=== PATIENT | male | born 1985 | race Caucasian/White ===

== ENCOUNTER → 2022-10-02 13:58 | Outpatient (CLI) | payer OTHER, SELFPAY ==
--- NOTE | ~2022-10-02 | US_ITS ---
US right upper quadrant INDICATION: Elevated liver function tests. PROCEDURE: Realtime right upper abdominal ultrasound. COMPARISON: No prior studies for comparison. FINDINGS: The pancreas is normal without focal mass or pancreatic ductal dilation. Liver echotexture is increased, consistent with fatty infiltration. There is normal directional flow in the portal ve in. There is a small 4 mm gallbladder polyp. Common bile duct measures 4 mm. No sonographic Flores's si gn. Right renal echotexture is normal. IMPRESSION: 1: Gallbladder polyp measuring 4 mm. 2: Hepatic steatosis. Reviewed, dictated and finalized at location A. DOWN
== END ==
PROVIDERS: PCP Family Medicine; Visit Provider Family Medicine
DX: R79.89 Other specified abnormal findings of blood chemistry (principal); K82.4 Cholesterolosis of gallbladder; K76.0 Fatty (change of) liver, not elsewhere classified
CPT/HCPCS: 76705

== ENCOUNTER 2025-05-18 12:42 | Outpatient (CLI) | payer BC, SELFPAY ==
--- NOTE | ~2025-05-18 | XR_ITS ---
XR cervical spine 4-5V 05/18/2025 13:01 Indication: Neck pain with headache Procedure: 5 views cervical spine Comparison: No prior studies for comparison. Findings: There is fusion at C4-5. There is mild degenerative spondylosis at C5- 6 and C6-7. No alteration of alignment with flexion/extension. No prevertebral soft tissue swelling. Lung apices are normal. Odontoid process within normal limits. Impression: 1: Mild cervical spondylosis. Reviewed, dictated and finalized at location O. Impression: 1: Mild cervical spondylosis.
--- OUTSIDE RECORDS SUMMARY | 2025-05-18 12:51 | XMS_ITS | Clinical Summary ---
Author Organization [facility] [address] Address [address] [place] [id number] Care Team Providers Care Police Captain Name Role Phone Rosita Mercado MD Primary Care Provider [phone] Allergies Active Allergy Reactions Criticality Noted Date Comments Sulfasalazine Rash Medium 04/06/2013 Medications cholecalcifero l (VITAMIN D-3) 2000 unit tablet Take 2 tablets (4,000 Units total) by mouth daily 09/01/[address] (PROTONIX) 40 mg EC tablet Take 1 tablet (40 mg total) by mouth daily 90 tablet 3 03/07/20 24 Active amLODIPine (NORVASC) 10 mg tablet Take 1 tablet (10 mg total) by mouth daily 90 tablet 3 05/09/20 25 026 Active rosuvastatin (CRESTOR) 20 mg tablet Take 1 tablet (20 mg total) by mouth daily 90 tablet 3 05/09/20 25 Active tiZANidine (ZANAFLEX) 4 mg tablet Take 1 tablet (4 mg total) by mouth nightly as needed for muscle spasms 30 tablet 1 05/09/20 25 Active amLODIPine (NORVASC) 5 mg tablet Take 1 tablet (5 mg total) by mouth daily 90 tablet 3 03/07/20 24 025 Discontinued rosuvastatin (CRESTOR) 20 mg tablet Take 1 tablet (20 mg total) by mouth daily 90 tablet 3 03/07/20 24 025 Discontinued(Re order) cyclobenzaprin e (FLEXERIL) 10 mg tablet TAKE 1 TABLET(10 MG) BY MOUTH EVERY NIGHT NEEDED FOR MUSCLE SPASMS 90 tablet 1 06/27/20 24 025 Discontinued Active Problems Problem Noted Date Diagnosed Date Sore throat 06/15/2023 Assessment & Plan (06/15/2023 6:32 PM CDT): Rapid strep negative. Could be referred pain from otitis or false negative. Will treat. Gallbladder polyp 04/03/2023 Assessment & Plan (04/03/2023 1:00 PM CDT): 4mm polyp noted on US 09/2022, will follow up 09/2023 Hemorrhoids 01/07/2023 Assessment & Plan (04/03/2023 1:01 PM CDT): Uses anusol suppository with some relief. Counseled on high fiber diet and adding metamucil. Continue anusol as needed. Assessment & Plan (01/07/2023 2:38 PM CDT): Treat with Anusol suppositories and also recommended Imodium for diarrhea. Patient will follow-up with GI. Evaluate for anemia with CBC. Physical exam, routine 11/18/2022 Assessment & Plan (03/07/2024 9:16 AM CDT): Age-appropriate preventive care ordered/completed. Will follow-up with results of the labs and repeat exam in 1 year. Assessment & Plan (11/18/2022 4:06 PM [facility]): Age-appropriate preventive care ordered/completed. Will follow-up with results of the labs and repeat exam in 1 year. Colon and prostate cancer screening at 45 and 50 respectively unless indicated sooner. Anxiety 11/18/2022 Assessment & Plan (11/18/2022 4:06 PM [facility]): Stable on current medications for now. If symptoms worsen consider long-term medication. Bilateral acute serous otitis media 11/18/2022 Assessment & Plan (06/15/2023 6:31 PM CDT): Treat with augmentin 875-125 mg bid for 10 days. May continue OTC remedies as needed. Follow-up next week if symptoms persist. Assessment & Plan (11/18/2022 4:06 PM [facility]): Treat with Augmentin 875/1251 tablet twice daily for 10 days. Follow-up next week if there is no relief. Elevated LFTs 10/03/2022 Assessment & Plan (04/03/2023 12:59 PM CDT): Noted to have elevated liver enzymes with AST 67, ALT 118 from 08/2022. 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 Labs 01/07/2023 showed normal CMP, CBC, TSH, A1c 6.4, triglyceride 267 Chronic liver disease workup showed normal alpha-1 antitrypsin, ceruloplasmin, elevated ferritin 518, normal transferrin saturation, negative hepatitis panel, negative SHANTA, anti-smooth muscle US from 09/2022 showed hepatic steatosis and 4mm gallbladder polyp Since last visit, down about 8 lbs, recently started seeing nutrition, cutting down on carbs and sugar. Plan Will check fibro score Follow up in 6 months, will repeat US and CMP that time Continue to work on weight loss Assessment & Plan (01/07/2023 2:37 PM CDT): Likely due to hepatic steatosis. Evaluate levels today and follow-up depending on results. Assessment & Plan (10/03/2022 11:28 AM [facility]): New problem. Noted to have elevated liver enzymes with AST 67, ALT 118 from 08/2022. 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 Other differential include drug-induced liver injury, chronic hepatitis, and less likely other chronic liver disease. We will repeat CMP and check hepatitis C today. We will defer other chronic liver disease workup until repeat labs. We will request ultrasound records from outside facility. Patient was counseled on weight loss Pre-diabetes 10/03/2022 Assessment & Plan (03/07/2024 9:16 AM CDT): Elevated blood glucose increases the likelihood of progression to diabetes. Patient will be provided a diet low in simple sugars if needed. Will evaluate labs and follow-up depending on results. Assessment & Plan (01/07/2023 2:37 PM CDT): Elevated blood glucose increases the likelihood of progression to diabetes. Patient will be provided a diet low in simple sugars if needed. Will evaluate labs and follow-up depending on results. Hyperlipidemia 10/03/2022 Assessment & Plan (03/07/2024 9:14 AM CDT): Continue current medication for now and adjust if needed depending on results of lipid panel. Patient has been provided a low-cholesterol diet. Assessment & Plan (01/07/2023 2:37 PM CDT): Continue current medication for now and adjust if needed depending on results of lipid panel. Patient has been counseled regarding a low-cholesterol diet. Assessment & Plan (11/18/2022 4:05 PM [facility]): Continue current medication for now and adjust if needed depending on results of lipid panel next visit. Patient has been counseled regarding a low-cholesterol diet. Hypertension 10/03/2022 Assessment & Plan (03/07/2024 9:15 AM CDT): Not at goal, but we will resume medications. Pt will monitor at home and follow- up for persistent elevations. Otherwise follow-up in 3 months. Assessment & Plan (01/07/2023 2:37 PM CDT): At goal of less than 140/90. Continue current medications to minimize complications of uncontrolled blood pressure. Risks include cardiovascular events (such as heart failure, heart attack and stroke) and kidney failure which can lead to dialysis. Evaluate electrolytes and renal function. Return in 3-6 months depending on results. Assessment & Plan (11/18/2022 4:05 PM [facility]): Not at goal of less than 140/90. Start hydrochlorothiazide 25 mg daily. Patient will start to monitor blood pressures at home and notify me of persistent elevations. Return in 6 weeks. Elevated ALT measurement 06/11/2022 Tension headache 06/11/2022 Vitamin D insufficiency 06/11/2022 Assessment & Plan (03/07/2024 9:16 AM CDT): Adjust supplement/medication depending on lab results. Primary insomnia 04/18/2020 Gastroesophageal reflux disease without esophagi tis 05/25/2019 Resolved Problems Problem Noted Date Diagnosed Date Resolved Date Class 1 obesity due to exces s calories with serious comorbidity and body mass index (BMI) of 32.0 to 32.9 in adult 10/03/2022 03/07/2024 Assessment & Plan (03/07/2024 9:15 AM CDT): Pt is at risk for obesity-related illnesses including diabetes, HTN and hyperlipidemia. Weight loss is encouraged. Evaluate for diabetes and thyroid dysfunction. Pt would like to start weight loss medications. Assessment & Plan (11/18/2022 4:05 PM [facility] [facility]): Pt is at risk for obesity-related illnesses including diabetes, HTN and hyperlipidemia. Weight loss is encouraged. Evaluate for diabetes and thyroid dysfunction. Assessment & Plan (10/03/2022 11:27 AM [facility] [facility]): Patient with recent weight gain of 20 lb over the last 2-3 years. Patient was counseled on weight loss Encounters Date Type Department Care Team Description 05/18/2025 Telephone [facility] [address] [place] [phone] Rosita Mercado MD Medical Question/Miscellaneo us 05/11/2025 Results Follow-Up [facility] [address] [place] [address] [address] [place] [phone] Rosita Mercado MD Hemoglobin A1c, Lipid panel, Comprehensive metabolic panel, Additional followed-up results: 4 05/09/2025 3:15 PM CDT - 05/09/2025 11:59 PM CDT Hospital Encounter [facility] [address] [place] [address] Discharge Disposition: Discharge to home or self care 05/09/2025 2:15 PM CDT Office Visit [facility] [address] [phone] Rosita Mercado MD Physical exam, routine (Primary Dx); Primary hypertension; Mixed hyperlipidemia; Pre-diabetes; Class 1 obesity due to excess calories with serious comorbidity and body mass index (BMI) of 33.0 to 33.9 in adult; Neck pain from Last 3 Months Immunizations Immunization Administration Dates Next Due DT 03/20/1990,07/18/1987,1985 DTaP 1985,1985 Influenza, Quadrivalent, Zhane l Culture-based MDCK, Preservative Free, Antibiotic Free, Intramuscular 07/16/2022 Influenza, Quadrivalent, Spl it, Intramuscular 07/06/2019,07/27/2018 Influenza, Quadrivalent, Spl it, Preservative Free, Intramuscular 09/23/2021,09/07/2017 Influenza, Trivalent, IM (MDV) 07/16/2022,2019 MMR 03/20/1990,12/25/1986 OPV 03/20/1990, 7,1985,07/08,1985 Td, adsorbed 01/15/1999 Tdap 11/02/2017 Tetanus toxoid, adsorbed 03/20/1990,07/18/1987,1 Surgical History Surgery Date Site/Laterality Comments VASECTOMY Medical History Medical History Date Comments GERD (gastroesophageal reflux disease) 03/2020 Anxiety 05/2018 Depression 05/2018 Migraines 04/2022 Hypertension 04/2022 Prediabetes Family History Medical History Relation Name Comments No Known Problems Father No Known Problems Mother Testicular cancer Mother's Brother No Known Problems Sister Relation Name Status Comments Father Alive Mother Alive Mother's Brother Sister Alive Social History Tobacco Use Types Packs/Day Years Used Date Smoking Tobacco: Former Cigarettes 0.1 10 0 05/12/2002 - 01/11/2012 Pipe Cigars Smokeless Tobacco: Never Comments:very infrequent. It was a pack or two a month during college and after college it was only weekends Alcohol Use Standard Drinks/Week Comments Yes 0 (1 standard drink = 0.6 oz pur e alcohol) PHQ-2 Answer Date Recorded PHQ-2 Total Score (If total score is 3 or more points, staff should administer the PHQ-9) 1 05/09/2025 AUDIT-C Answer Date Recorded Q1: How often do you have a drink containing alc ohol? Monthly or less 05/09/2025 Q2: How many drinks containi ng alcohol do you have on a typical day when you are drinking? 1 or 2 05/09/2025 Q3: How often do you have si x or more drinks on one occasion? Never 05/09/2025 Sex and Gender Information Value Date Recorded Sex Assigned at Not on file Legal Sex Male 7:44 PM CDT Gender Identity Not on file Sexual Orientation Not on file Obstetrics History Last Filed Vital Signs Vital Sign Reading Time Taken Comments Blood Pressure 168/108 05/09/2025 2:46 PM CDT Pulse 97 05/09/2025 2:22 PM CDT Temperature 36.8 C (98.3 F) 05/09/2025 2:22 PM CDT Respiratory Rate 18 10/03/2022 10:08 AM [facility] Oxygen Saturation 98% 05/09/2025 2:22 PM CDT Inhaled Oxygen Concentration - - Weight 109.3 kg (241 lb) 05/09/2025 2:22 PM CDT Height 180.3 cm (5' 11) 05/09/2025 2:22 PM CDT Body Mass Index 33.61 05/09/2025 2:22 PM CDT Plan of Treatment Health Maintenance Due Date Last Done Comments HPV Vaccines (1 - 3-dose SCDM series) 02/28/2012 Influenza Vaccine (#1) 2025 , 07/16/2022, 09/23/2021, Additional history exists Covid-19 Vaccine ( season) 2026 07/16/2022, 09/23/2021, 01/17/2021, Additional history exists Postponed from 05/29/2024 (Patient declined, but will receive in the future) Depression Screening 05/09/2026 05/09/2025, 03/07/2024, 11/18/2022 Regular Well Visit/Exam 18-64 05/09/2026 05/09/2025, 03/07/2024 DTaP/Tdap/Td Vaccine (7 - Td or Tdap) 11/02/2027 11/02/2017, 01/15/1999, 03/20/1990, Additional history exists Hepatitis C Screening Completed 10/03/2022 Hepatitis B Screening Completed 10/08/2022 Pneumococcal vaccine <65 Aged Out No longer eligible based on patient's age to complete this topic Varicella Vaccines Discontinued Procedures Procedure Name Priority Date/Time Associated Diagnosis Comments EGFR Routine 05/09/2025 2:58 PM CDT Physical exam, routine DIFFERENTIAL AUTO Routine 05/09/2025 2:5 8 PM CDT Physical exam, routine THYROID FUNCTION CASCADE Routine 05/09/2025 2:58 PM CDT Physical exam, routine CBC WITH AUTO DIFFERENTIAL Routine 05/09/2025 2:58 PM CDT Physical exam, routine COMPREHENSIVE METABOLIC PANEL Routine 05/09/2025 2:58 PM CDT Physical exam, routine LIPID PANEL Routine 05/09/2025 2:58 PM CDT Physical exam, routine HEMOGLOBIN A1C Routine 05/09/2025 2:58 PM CDT Physical exam, routine HEPATITIS C ANTIBODY Routine 10/03/2022 10:37 AM [facility] Elevated LFTs from Last 3 Months or Most Recently Relevant to Health Maintenance Results * eGFR (05/09/2025 2:58 PM CDT) eGFR >90 >=60 mL/min/1. 73 m2 Comment: Interpretive Data Reference Interval Normal >/= 90 mL/min/1.73m2 Mildly decreased* 60 - 89 mL/min/1.73m2 Mildly to moderately decreased 45 - 59 mL/min/1.73m2 Moderately to severely decreased 30 - 44 mL/min/1.73m2 Severely decreased 15 - 29 mL/min/1.73m2 Kidney Failure < 15 mL/min/1.73m2 *Relative to young adult level Estimated glomerular filtration rate is determined by the 2020 CKD-EPI equation recommended by the National Kidney Foundation (A Unifying Approach to GFR Estimation: Recommendations of the NKF-ASK Task Force on Reassessing the Inclusion of Race in Diagnosing Kidney Disease, JASN 202). The CKD-EPI equation should not be used for patients with unstable renal function and has not been validated in children and those over 70. Current interpretive data was last reviewed 2021. Blood 05/09/2025 2:58 PM CDT 05/09/2025 8:25 PM CDT us Rosita Mercado MD LAB BLOOD ORDERABLES Noemy rubin Result [facility] [address] Department [place] [address] * Differential, auto (05/09/2025 2:58 PM CDT) Neutrophil abs 2.98 1.50 - 6.50 K/cumm Imm gran abs 0.01 0.00 - 0.10 K/cumm [facility] Lymphocyte abs 2.84 0.80 - 3.30 K/cumm [facility] Monocyte abs 0.39 0.20 - 0.80 K/cumm [facility] Eosinophil abs 0.21 0.00 - 0.50 K/cumm [facility] Basophil abs 0.04 0.00 - 0.10 K/cumm [facility] Neutrophil pct 46.1 % [facility] Comment: Interpretive Data Percent cell count reference ranges are not reported, since discordance with absolute values may lead to misinterpretation of CBC data. Current Interpretive Data was last revised on 2018. Imm gran pct 0.2 % [facility] Comment: Interpretive Data Percent cell count reference ranges are not reported, since discordance with absolute values may lead to misinterpretation of CBC data. Current Interpretive Data was last revised on 2018. Lymphocyte pct 43.9 % [facility] Comment: Interpretive Data Percent cell count reference ranges are not reported, since discordance with absolute values may lead to misinterpretation of CBC data. Current Interpretive Data was last revised on 2018. Monocyte pct 6.0 % [facility] Comment: Interpretive Data Percent cell count reference ranges are not reported, since discordance with absolute values may lead to misinterpretation of CBC data. Current Interpretive Data was last revised on 2018. Eosinophil pct 3.2 % [facility] Comment: Interpretive Data Percent cell count reference ranges are not reported, since discordance with absolute values may lead to misinterpretation of CBC data. Current Interpretive Data was last revised on 2018. Basophil pct 0.6 % [facility] Comment: Interpretive Data Percent cell count reference ranges are not reported, since discordance with absolute values may lead to misinterpretation of CBC data. Current Interpretive Data was last revised on 2018. Blood 05/09/2025 2:58 PM CDT 05/09/2025 6:10 PM CDT Rosita Mercado MD LAB BLOOD ORDERABLES Noemy l Result Performing Organization Address City/[facility]/ZIP Co de Phone Number [facility] [address] Department [place] [address] * Thyroid Function [place] (05/09/2025 2:58 PM CDT) Pathologist [facility] TSH 1.68 0.30 - 4.20 mcIUnit/mL Blood 05/09/2025 2:58 PM CDT 05/09/2025 8:25 PM CDT Rosita Mercado MD LAB BLOOD ORDERABLES Noemy l Result [facility] [address] [place] [address] * CBC with auto differential (05/09/2025 2:58 PM CDT) Pathologist [facility] WBC 6.47 3.80 - 9.90 K/cumm Hgb 16.4 13.0 - 17.5 g/dL [facility] Hct 49.0 38.9 - 50.3 % [facility] Plt 272 150 - 400 K/cumm [facility] MPV 10.2 9.1 - 12.3 fL [facility] RBC 5.65 4.30 - 5.80 M/cumm [facility] MCV 86.7 81.3 - 96.4 fL [facility] MCH 29.0 27.1 - 33.3 pg [facility] MCHC 33.5 32.3 - 35.7 g/dL [facility] RDW CV 12.0 11.1 - 14.9 % [facility] RDW SD 38.5 35.7 - 48.1 fL [facility] NRBC abs 0.00 0.00 - 0.01 K/cumm [facility] Blood 05/09/2025 2:58 PM CDT 05/09/2025 6:10 PM CDT Rosita Mercado MD LAB BLOOD ORDERABLES Noemy l Result Performing Organization Address [facility] Co de Phone Number [facility] [address] [employer] [place], [place] [id number] * (ABNORMAL) Hemoglobin A1c (05/09/2025 2:58 PM CDT) [facility] Hgb A1C 6.2(H) 4.0 - 5.6 % Estimated Average Glucose 131 mg/dL [facility] Comment: The ADA recommends reporting an estimated Average Glucose (eAG) with all Hemoglobin A1c results using the equation derived from a study of 507 normal and diabetic adults. Minority populations were underrepresented and children were not included. (Diabetes Care 31:5839-2107, 2008). The eAG is not equivalent to a fasting glucose. Blood 05/09/2025 2:58 PM CDT 05/09/2025 6:10 PM CDT Rosita Mercado MD LAB BLOOD ORDERABLES Noemy l Result Performing Organization Address City/[facility]/ZIP Co de Phone Number [facility] [address] [facility] [employer] [place], [place] [id number] * (ABNORMAL) Lipid panel (05/09/2025 2:58 PM CDT) Cholesterol 200(H) 30 - 199 mg/dL Comment: Interpretive Data Ages < or = 19 years Acceptable: <170 mg/dL Borderline high: 170-199 mg/dL High: >or= 200 mg/dL Ages > or = 20 years Desirable: <200 mg/dL Borderline high: 200-239 mg/dL High: >or= 240 mg/dL Literature References: 1. Expert Panel on Integrated Guidelines for Cardiovascular Health and Risk Reduction in Children and Adolescents. Pediatrics 2011;128:S213 2. NCEP Expert Panel. Circulation 2004;110:227 Current Interpretive Data was last revised on 2018. Triglycerides 255(H) <=149 mg/dL [facility] Comment: Interpretive Data Ages < or = 9 years Acceptable: <75 mg/dL Borderline high: 75-99 mg/dL High: >or= 100 mg/dL Ages 10 to 20 years Acceptable: <90 mg/dL Borderline high: 90-129 mg/dL High: >or= 130 mg/dL Ages > or = 20 years Desirable: <150 mg/dL Borderline high: 150-199 mg/dL High: 200-499 mg/dL Very high: >or= 499 mg/dL Literature References: 1. Expert Panel on Integrated Guidelines for Cardiovascular Health and Risk Reduction in Children and Adolescents. Pediatrics 2011;128:S213 2. NCEP Expert Panel. Circulation 2004;110:227 Current Interpretive Data was last revised on 2018. HDL 41 >=40 mg/dL [facility] Comment: Interpretive Data Ages < or = 19 years Acceptable: >45 mg/dL Borderline low: 40-45 mg/dL Low: <40 mg/dL Ages > or = 20 years Desirable: >or= 60 mg/dL Low: <40 mg/dL Literature References: 1. Expert Panel on Integrated Guidelines for Cardiovascular Health and Risk Reduction in Children and Adolescents. Pediatrics 2011;128:S213 2. NCEP Expert Panel. Circulation 2004;110:227 Current Interpretive Data was last revised on 2018. LDL, calculated 115 <=129 mg/dL [facility] Comment: Interpretive Data Ages < or = 19 years Acceptable: <110 mg/dL Borderline high: 110-129 mg/dL High: >or= 130 mg/dL Ages > or = 20 years Optimal: <100 mg/dL Near optimal: 100-129 mg/dL Borderline high: 130-159 mg/dL High: >160 mg/dL Calculated using the Waldemar LDL-C estimating equation. This equation was implemented on 2024. Prior to this date LDL-C was estimated using the Friedewald equation. Literature References: 1. Expert Panel on Integrated Guidelines for Cardiovascular Health and Risk Reduction in Children and Adolescents. Pediatrics 2011;128:S213 2. NCEP Expert Panel. Circulation 2004;110:227 3. Waldemar Ohara et al. OANH Cardiol. 2019January 26;5(5):540-548. doi: 10.1001/jamacardio.2020.0013 Current Interpretive Data was last revised on 2024. Non-HDL Cholesterol 159 mg/dL [facility] Comment: Interpretive Data Ages < or = 19 years Acceptable: <120 mg/dL Borderline high: 120-144 mg/dL High: >145 mg/dL Ages > or = 20 years When triglycerides are >200 mg/dL, Non-HDL cholesterol is a secondary target of therapy with treatment goals that are 30 mg/dL greater than the LDL cholesterol target. Literature References: 1. Expert Panel on Integrated Guidelines for Cardiovascular Health and Risk Reduction in Children and Adolescents. Pediatrics 2011;128:S213 2. NCEP Expert Panel. Circulation 2004;110:227 Current Interpretive Data was last revised on 2018. Chol/HDL ratio 5 [facility] Blood 05/09/2025 2:58 PM CDT 05/09/2025 8:25 PM CDT us Rosita Mercado MD LAB BLOOD ORDERABLES Noemy rubin Result [facility] [address] Department [place] [address] * (ABNORMAL) Comprehensive metabolic panel (05/09/2025 2:58 PM CDT) Sodium 139 135 - 145 mmol/L Potassium, pl 4.2 3.3 - 4.9 mmol/L [facility] Chloride 102 97 - 110 mmol/L [facility] CO2 24 22 - 32 mmol/L [facility] Anion gap 13 2 - 15 mmol/L [facility] BUN 13 6 - 25 mg/dL [facility] Creatinine 0.88 0.80 - 1.30 mg/dL [facility] Glucose 168 70 - 199 mg/dL [facility] Comment: Interpretive Data Fasting glucose >/= 126 mg/dl is diagnostic for diabetes. Fasting is defined as no caloric intake for at least 8 hours. Fasting glucose between 100 mg/dl to 125 mg/dl is diagnostic of prediabetes. In a patient with classic symptoms of hyperglycemia or hyperglycemic crisis, a random glucose >/= 200 mg/dl is diagnostic for diabetes. In the absence of unequivocal hyperglycemia, results should be confirmed by repeat testing. The classification and Diagnosis of Diabetes Diabetes Care 2021; 46: S19-S40. Current interpretive data was last revised 2022. Calcium 9.8 8.5 - 10.3 mg/dL [facility] Bilirubin, total 0.5 0.1 - 1.2 mg/dL [facility] Protein, pl 7.5 6.5 - 8.5 g/dL [facility] Albumin 4.5 3.5 - 5.0 g/dL [facility] Alk phos 83 40 - 130 Units/L [facility] ALT 58(H) 7 - 55 Units/L [facility] AST 31 10 - 50 Units/L [facility] Blood 05/09/2025 2:58 PM CDT 05/09/2025 8:25 PM CDT Narrative [facility] - 05/09/2025 8:58 PM CDT Has the patient fasted?->Yes us Rosita Mercado MD LAB BLOOD ORDERABLES Noemy rubin Result [facility] [address] Department [place] [address] * Hepatitis C antibody (10/03/2022 10:37 AM [facility] [facility]) Hep C Ab Nonreactive Nonreactive [facility] ([place]) Comment: Interpretive Data Nonreactive: Antibodies to HCV not detected. Does NOT exclude the possibility of recent exposure to HCV. Equivocal: Equivocal for HCV antibodies. Supplemental molecular testing will be automatically performed to determine infection status in accordance with current CDC screening recommendations. Reactive: Positive for HCV antibodies. This may represent current or past HCV infection. Supplemental molecular testing will be automatically performed to determine current infection status in accordance with current CDC screening recommendations. Interpretive data was last revised on 2019. Testing performed by: [facility], [address] [place] [address]., [id number] Blood 10/03/2022 10:3 7 AM SUPERVISOR DENTURE DEPARTMENT 10/03/2022 4:51 PM SUPERVISOR DENTURE DEPARTMENT Elise Arellano MD LAB MICROBIOLOGY - GENERAL ORDER DOUGLAS Final Result CLAUDIA [facility] (TRUMANN) [facility] Department [place] [address] from Last 3 Months or Most Recently Relevant to Health Maintenance Insurance [facility] [employer] [facility] Care Teams Police Captain Relationship Specialty Start Date End Date Rosita Mercado MD [address] [facility] [address] [place] [address] PCP - General Family Medicine 11/18/22
--- OUTSIDE RECORDS SUMMARY | 2025-05-18 12:51 | XMS_ITS | Encounter Summary ---
Author Organization [facility] Healthcare Address [address] [place] [address] Care Team Providers Care Latex Caster Name Role Phone Rosita Mercado MD Primary Care Provider [phone] Encounter Details Date Type Department Care Team (Late st Contact Info) Description 05/11/2025 Results [facility]-Up [facility] [address] [place] [address] [address] [place] [address] Rosita Mercado MD [address] [place] [address] [address] [place] [address] Hemoglobin A1c, Lipid panel, Comprehensive metabolic panel, Additional followed-up results: 4 Social History Tobacco Use Types Packs/Day Years [...] on file Sexual Orientation Not on file documented as of this encounter Plan of Treatment Not on file documented as of this encounter Visit Diagnoses Not on filedocumented in this encounter Care Teams Latex Caster Relationship Specialty Start Date End Date Rosita Mercado MD [address] [facility] [address] [place] [address] PCP - General Family Medicine 11/18/22 documented as of this encounter
--- OUTSIDE RECORDS SUMMARY | 2025-05-18 12:51 | XMS_ITS | Encounter Summary ---
Author Organization [facility] Healthcare Address [address] [place] [address] Care Team Providers Care Floor Cleaner Name Role Phone Rosita Mercado MD Primary Care Provider [phone] Reason for Visit * Reason Onset Date Comments Medical Question/Miscellaneous 05/18/2025 Encounter Details Date Type Department Care Team (Late Contact Info) Description 05/18/2025 Telephone [facility] [address] [place] [address] [address] [place] [address] Rosita Mercado MD [address] [place] [address] [address] [place] [address] Medical Question/Miscellaneous Social History Tobacco Use Types Packs/Day Years [...] on file documented as of this encounter Miscellaneous Notes * Telephone Encounter - Pravin Buck - 05/18/2025 12:45 PM CDT Faxed and sent to [facility] * Telephone Encounter - Hannah Barone - 05/18/2025 12:26 PM CDT Call Back Caller???s Concern: Calling for XR order status. Currently at facility. [facility] reached out to backlinewas advised they will refax and place order in patients [facility] Does message need to be routed? No * Telephone Encounter - Rachel Bryan - 05/18/2025 11:59 AM CDT Medical Question/Miscellaneous Caller???s Concern: Patient would like for the office to send the order for XR spine cervical Complete 4 OR 5 Vw sent to his [facility] imaging center [phone] . Patient is currently at the office . Does message need to be routed? Yes-Action Needed documented in this encounter Plan of Treatment Not on file documented as of this encounter Visit Diagnoses Not on filedocumented in this encounter Care Teams Floor Cleaner Relationship Specialty Start Date End Date Rosita Mercado MD [address] [facility] [address] [place] [address] PCP - General Family Medicine 11/18/22 documented as of this encounter
--- OUTSIDE RECORDS SUMMARY | 2025-05-18 12:51 | XMS_ITS | Clinical Summary ---
Author Organization [facility] [employer] [place] Address [address] [place] [address] Care Team Providers Care Costume Maker Name Role Phone Unavailable Primary Care Provider Unavailabl e Allergies Active Allergy Reactions Criticality Noted Date Comments Sulfasalazine Rash Low 04/06/2013 Medications cholecalciferol, Vitamin D3, 50 mcg (2,000 unit) TabletIndications:V itamin D insufficiency Take 2 Tablets (4,000 Units) by mouth daily. 180 Tablet 2 Active rosuvastatin (CRESTOR) 20 mg tabletIndications:M ixed hyperlipidemia Take 1 Tablet (20 mg) by mouth daily. 90 Tablet 2 Active amitriptyline (ELAVIL) 25 mg tablet Take 0.5 Tablets (12.5 mg) by mouth daily at bedtime. 30 Tablet 2 Active pantoprazole (PROTONIX) 40 mg Tablet, Delayed Release (E.C.) TAKE 1 TABLET(40 MG) BY MOUTH DAILY 90 Tablet 3 Active Active Problems Problem Noted Date Diagnosed Date Elevated LFTs 09/24/2022 Prediabetes 06/11/2022 Elevated ALT measurement 06/11/2022 Vitamin D insufficiency 06/11/2022 Mixed hyperlipidemia 06/11/2022 Tension headache 06/11/2022 Gastroesophageal reflux disease without esophagi tis 05/25/2019 Immunizations Immunization Administration Dates Next Due (ADACEL/BOOSTRIX)(10 YR UP) TDAP VACCINE, 0.5ML, IM 11/02/2017 INFLUENZA VACCINE QUADRIVALENT 3 YR UP PF IM 07/2017 INFLUENZA VACCINE QUADRIVALENT 6 MOS UP IM 07/06,07/27/2018 Influenza Seasonal Unspecified Formulation IM ,06/25/2020 Family History Medical History Relation Name Comments No Known Problems Daughter Hypertension Father Unknown Maternal Grandfather Unknown Maternal Grandmother Hypertension Mother Unknown Paternal Grandfather Unknown Paternal Grandmother No Known Problems Sister 1 No Known Problems Sister 2 Relation Name Status Comments Daughter Alive Father Alive Maternal Grandfather Maternal Grandmother Mother Alive Paternal Grandfather Paternal Grandmother Sister 1 Alive Sister 2 Alive Social History Tobacco Use Types Packs/Day Years Used Date Smoking Tobacco: Former Smokeless Tobacco: Never Alcohol Use Standard Drinks/Week Comments Yes 0 (1 standard drink = 0.6 oz pur e alcohol) social Sex and Gender Information Value Date Recorded Sex Assigned at Not on file Legal Sex Male 3:53 PM FINANCIAL ACCOUNTANT Gender Identity Not on file Sexual Orientation Not on file Last Filed Vital Signs Vital Sign Reading Time Taken Comments Blood Pressure 116/82 09/10/2022 1:28 PM FINANCIAL ACCOUNTANT Pulse 105 09/10/2022 1:28 PM FINANCIAL ACCOUNTANT Temperature 36.6 C (97.8 F) 09/10/2022 1:28 PM FINANCIAL ACCOUNTANT Respiratory Rate 18 09/10/2022 1:28 PM FINANCIAL ACCOUNTANT Oxygen Saturation 97% 09/10/2022 1:28 PM FINANCIAL ACCOUNTANT Inhaled Oxygen Concentration - - Weight 107.5 kg (237 lb) 09/10/2022 1:28 PM FINANCIAL ACCOUNTANT Height 180.3 cm (5' 11) 09/10/2022 1:28 PM FINANCIAL ACCOUNTANT Body Mass Index 33.05 09/10/2022 1:28 PM FINANCIAL ACCOUNTANT Plan of Treatment Health Maintenance Due Date Last Done Comments HPV VACCINES (1 - Male 3-dos e series) 02/28/2000 HEPATITIS B VACCINES (1 of 3 - 19+ 3-dose series) 02/28/2004 INFLUENZA VACCINE (#1) 2025 2, 06/25/2020, 07/06/2019, Additional history exists DTAP/TDAP/TD VACCINES (2 - T d or Tdap) 11/02/2027 11/02/2017 Insurance [employer] OPEN [employer]ESS
--- OUTSIDE RECORDS SUMMARY | 2025-05-18 12:51 | XMS_ITS | Clinical Summary ---
Author Organization [facility] Address [address] [place] [address] Care Team Providers Care Coke Inspector Name Role Phone Raheem Portillo DO Primary Care Provider [phone] Source Comments [facility],non-owned Affiliates and Associated Physician Practices is amultiple site organization consisting of ambulatory clinics and hospital sitesin [place], [place], [place] and [place]. This disclosure is being madepursuant to the Care Everywhere program and may not contain all information available regarding this patient. Last updated 18.[facility] Allergies Active Allergy Reactions Criticality Noted Date Comments Sulfa Drugs 04/06/2013 Medications * Be aware that medications may not be up to date on this document. Alwaysverify current medications with the patient. pantoprazole EC (PROTONIX) 40 MG tablet Take 1 (one) tablet by mouth daily before breakfast 90 tablet 3 1 Active hydrOXYzine hcl (ATARAX) 25 MG tablet Take 1 (one) tablet by mouth every 6 hours as needed (anxiety) 90 tablet 5 1 Active Active Problems Problem Noted Date Diagnosed Date Anxiety 09/19/2021 Gastroesophageal reflux disease 04/18/2020 Primary insomnia 04/18/2020 Family History Medical History Relation Name Comments Hypercholesterolemia Father Relation Name Status Comments Father Alive Maternal Grandfather Alive Maternal Grandmother Alive Mother Alive Paternal Grandfather Alzheim er's Disease Paternal Grandmother Alive Sister Alive Social History Tobacco Use Types Packs/Day Years Used Date Smoking Tobacco: Never Cigarettes Pipe Smokeless Tobacco: Never Alcohol Use Standard Drinks/Week Comments Yes 0 (1 standard drink = 0.6 oz pur e alcohol) rarely PHQ-2 Answer Date Recorded PHQ2 TOTAL SCORE 2 09/19/2021 Sex and Gender Information Value Date Recorded Sex Assigned at Not on file Legal Sex Male 1:17 PM CDT Gender Identity Not on file Sexual Orientation Not on file Last Filed Vital Signs Vital Sign Reading Time Taken Comments Blood Pressure 128/74 04/06/2013 2:48 PM CDT Pulse 76 04/06/2013 2:48 PM CDT Temperature 36.8 C (98.3 F) 04/06/2013 2:48 PM CDT Respiratory Rate - - Oxygen Saturation - - Inhaled Oxygen Concentration - - Weight 88 kg (194 lb) 04/06/2013 2:48 PM CDT Height 180.3 cm (5' 11) 04/06/2013 2:48 PM CDT Body Mass Index 27.06 04/06/2013 2:48 PM CDT Plan of Treatment Health Maintenance Due Date Last Done Comments LIPID TESTING 1985 HIV SCREENING 02/28/2000 HEPATITIS C SCREENING 02/23/2003 DTAP/TDAP/TD VACCINES (1 - Tdap) 02/28/2004 HEPATITIS B VACCINE (1 of 3 - 19+ 3-dose series) 02/28/2004 HPV VACCINE (1 - 3-dose SCDM series) 02/28/2012 COVID-19 VACCINE (1 - 2023- season) 2024 DEPRESSION SCREENING 09/28/2024 INFLUENZA VACCINE (#1) 2025 0, 07/06/2019, 07/27/2018, Additional history exists ZOSTER VACCINE (1 of 2) 2035 HIB VACCINE Aged Out No longer eligi ble based on patient's age to complete this topic MENINGOCOCCAL (Group B) VACCINE SHARED DECISION-MAKING Aged Out No longer eligible based on patient's age to complete this topic MENINGOCOCCAL GROUPS A/C/Y/W VACCINE Aged Out No longer eligible based on patient's age to complete this topic PNEUMOCOCCAL VACCINE Aged Out No long er eligible based on patient's age to complete this topic Insurance [facility] Care Teams Coke Inspector Relationship Specialty Start Date End Date Raheem Portillo DO [address] [place] [id number] PCP - General Family Medicine 04/24/20
== END 2025-05-18 12:43 | disposition home or self-care (01) ==
DX: M47.892 Other spondylosis, cervical region (principal)
CPT/HCPCS: 72050